=== PATIENT | female | born 1975 | race Caucasian/White ===

== ENCOUNTER → 2016-07-16 | Outpatient (REF) ==
[~2016-07-16] MED LIST: ALLEGRA60 MG PO; BCP; IBU800 M1 PO; LORTAB; PERCOCET 325 MG1 TA2 PO; PRENATAL1 TA1 PO; SLOW FE45 MG PO; SLOW-K8 MEQ PO
== END ==
LOC: WSOH 16:25
DX: Z01.89 Encounter for other specified special examinations (principal)

== ENCOUNTER → 2017-04-11 | Outpatient (CLI) | payer BC | LOC: MC.RAD 13:08 | DX: Z12.31 Encounter for screening mammogram for malignant neoplasm of breast (principal) ==

== ENCOUNTER → 2018-11-22 | Outpatient (CLI) | payer BC | LOC: MC.RAD 14:58 | DX: Z12.31 Encounter for screening mammogram for malignant neoplasm of breast (principal) ==

== ENCOUNTER 2020-09-24 13:31 | Outpatient (CLI) | payer BC ==
[~2020-09-24] VITALS: Ht 167.6 cm; Wt 61.9 kg
[2020-09-24 14:30] VITALS: BP 102/67; PULSE 65; TEMP 98.5
--- NOTE | 2020-09-24 14:45 | NUR ---
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 pt is up in room dressed, reviewed discharge care of site with pt and waiting on discharge orders from on appt.
--- NOTE | 2020-09-24 16:15 | NUR ---
pt and choose to leave before final discharge from Dr with appts, took number to call pt on appts. reviewed wound care again with pt, pt discharged amb. to car with supplies
--- NOTE | 2020-09-24 16:48 | NUR ---
called pt on appts made by [facility], wound care/device check for 10/02/20 at 10:15 also echo scheduled 10/22/20 at 0915 on [facility], phone number given No other new orders made
== END 2020-09-24 16:15 | disposition home or self-care (01) ==
LOC: COL.CAR 13:31
DX: R55 Syncope and collapse (principal); I44.7 Left bundle-branch block, unspecified; R42 Dizziness and giddiness; R94.39 Abnormal result of other cardiovascular function study; Z20.822 Contact with and (suspected) exposure to COVID-19; Z80.9 Family history of malignant neoplasm, unspecified; Z82.49 Family history of ischemic heart disease and other diseases of the circulatory system; Z82.3 Family history of stroke
CPT/HCPCS: 27124; C1764

== ENCOUNTER → 2020-11-07 | Outpatient (CLI) | payer BC | LOC: MC.RAD 13:32 | DX: Z12.31 Encounter for screening mammogram for malignant neoplasm of breast (principal) ==

== ENCOUNTER 2023-03-03 12:19 | Outpatient (CLI) | payer BC ==
[~2023-03-03] VITALS: Ht 167.7 cm; Wt 60.8 kg
[2023-03-03 12:45] VITALS: BP 112/71; PULSE 72; TEMP 98.6
[2023-03-03 14:40] VITALS: BP 116/93; PULSE 82
[2023-03-03 14:45] VITALS: BP 118/83; PULSE 74
[2023-03-03 15:00] VITALS: BP 112/73; PULSE 74
[2023-03-03 15:15] VITALS: BP 115/78; PULSE 80
--- NOTE | 2023-03-03 15:42 | NUR ---
pt tolerated recovery period well. vs remained within normal limits and IV discontinued upon discharge. pt verbalized understanding of discharge instructions and was free from acute concerns and complaints at time of discharge.
== END 2023-03-03 15:43 | disposition home or self-care (01) ==
LOC: COL.CAR 12:19
DX: I95.1 Orthostatic hypotension (principal); I47.10 Supraventricular tachycardia, unspecified